=== PATIENT | male | born 1945 | race Caucasian/White ===

== ENCOUNTER → 2017-12-27 | Outpatient (CLI) | payer MEDICARE | END | disposition home or self-care (01) | LOC: LABWHC1 14:05 | PROVIDERS: ATTEND Internal Medicine | DX: R19.7 Diarrhea, unspecified (principal) | CPT/HCPCS: 87045; 87046; 87324; 89055 ==

== ENCOUNTER → 2018-02-13 | Outpatient (CLI) | payer MEDICARE ==
[2018-02-13 18:19] LABS: HCT 42.4 % (39.0-53.0); HGB 14.5 gm/dL (13.0-17.5); MCH 32.2 pg (25.0-35.0); MCHC 34.2 g/dL (31.0-37.0); MCV 94.3 fL (80.0-100.0); Mean Platelet Volume 7.6; Platelet Count 265 k/uL (150-450); RDW 12.4 % (11.5-15.5); WBC 5.9 k/uL (3.8-10.6)
[2018-02-13 18:22] LABS: ALT 32 U/L (21-72); AST 34 U/L (17-59); Albumin 4.3 g/dL (3.5-5.0); Alkaline Phosphatase 70 U/L (38-126); Anion Gap 12 mmol/L; Blood Urea Nitrogen 18 mg/dL (9-20); C Reactive Protein <5.0 mg/L (<10.0); Calcium 9.9 mg/dL (8.4-10.2); Carbon Dioxide 28 mmol/L (22-30); Chloride 102 mmol/L (98-107); Glucose 79 mg/dL (74-99); Potassium 4.9 mmol/L (3.5-5.1); Sodium 142 mmol/L (137-145); Total Bilirubin 0.4 mg/dL (0.2-1.3); Total Protein 6.8 g/dL (6.3-8.2)
[2018-02-13 20:01] LABS: Erythrocyte Sedimentation Rate 2 mm/hr (0-15)
[2018-02-14 01:09] LABS: Gliadin AB IgA, Unit <0.2 U/mL
== END | disposition home or self-care (01) ==
LOC: LABWHC1 17:10
PROVIDERS: ATTEND Internal Medicine Gastroenterology
DX: K52.9 Noninfective gastroenteritis and colitis, unspecified (principal); F32.9 Major depressive disorder, single episode, unspecified
CPT/HCPCS: 36415; 80053; 83516; 85027; 85652; 86140

== ENCOUNTER → 2018-03-16 | Outpatient (CLI) | payer MEDICARE ==
[2018-03-16 17:33] LABS: HCT 42.4 % (39.0-53.0); HGB 14.4 gm/dL (13.0-17.5); MCH 32.4 pg (25.0-35.0); MCV 95.3 fL (80.0-100.0); Mean Platelet Volume 7.1; Platelet Count 233 k/uL (150-450); RBC 4.45 m/uL (4.30-5.90)
[2018-03-16 17:39] LABS: ALT 45 U/L (21-72); AST 39 U/L (17-59); Albumin 4.3 g/dL (3.5-5.0); Alkaline Phosphatase 74 U/L (38-126); Anion Gap 11 mmol/L; Blood Urea Nitrogen 23 mg/dL (9-20); Calcium 9.8 mg/dL (8.4-10.2); Carbon Dioxide 25 mmol/L (22-30); Chloride 104 mmol/L (98-107); Glucose 82 mg/dL (74-99); Potassium 4.4 mmol/L (3.5-5.1); Sodium 140 mmol/L (137-145); Total Bilirubin 0.4 mg/dL (0.2-1.3); Total Protein 6.8 g/dL (6.3-8.2)
[2018-03-16 17:54] LABS: C Reactive Protein <5.0 mg/L (<10.0)
== END | disposition home or self-care (01) ==
LOC: LABWHC1 16:58
PROVIDERS: ATTEND Internal Medicine Gastroenterology
DX: F32.9 Major depressive disorder, single episode, unspecified (principal)
CPT/HCPCS: 36415; 80053; 85027; 86140

== ENCOUNTER → 2019-11-08 | Outpatient (CLI) | payer MEDICARE ==
--- NOTE | 2019-11-09 08:03 | US ---
EXAMINATION TYPE: US venous doppler duplex LE RT DATE OF EXAM: 11/08/2019 4:22 PM COMPARISON: NONE CLINICAL HISTORY: Right leg DVT M79.661. Pain and edema. SIDE PERFORMED: Right TECHNIQUE: The lower extremity deep venous system is examined utilizing real time linear array sonog tatyana with graded compression, doppler sonography and color-flow sonography. VESSELS IMAGED: External Iliac Vein (EIV) Common Femoral Vein Deep Femoral Vein Greater Saphenous Vein * Femoral Vein Popliteal Vein Small Saphenous Vein * Proximal Calf Veins (* superficial vessels) Grayscale, color doppler, spectral doppler imaging performed of the deep veins of the right lower ext remity. There is normal flow, compressibility, vascular waveforms. Right Leg: Negative for DVT IMPRESSION: No sonographic evidence of deep venous thrombosis within the right lower extremity.
== END | disposition home or self-care (01) ==
LOC: RADUSWWP 15:52
PROVIDERS: ATTEND Internal Medicine
DX: M79.661 Pain in right lower leg (principal)

== ENCOUNTER → 2020-08-04 | Outpatient (CLI) | payer MEDICARE ==
--- NOTE | 2020-08-04 10:41 | P.STRESS ---
- Stress Test Note Stress Test Results/Findings: Exam Performed: stress echo exercise Exam Date: 08/04/20 Reason for Exam: CHEST PAIN Height: 5 ft 9 in Weight: 144 kg Protocol: MADONNA Stage: 3 Duration of Exercise: 7:30 Resting Heart Rate: 73 Resting Blood Pressure: 134/64 Maximum Achieved Heart Rate: 130 Maximum Achieved Blood Pressure: 183/75 85% PMHR: 125 100% PMHR: 147 METS: 9.1 Technologist Comment: Stress Test Results/Findings: This is a 74-year-old gentleman with history of hypertension being evaluated for symptoms of chest pain. Stress data: Baseline EKG showed ectopic atrial rhythm with a normal TN and QRS duration. Blood pressure at rest is 134/64, pulse rate of 73. Patient walked on the Madonna protocol for 7 minutes and 30 seconds achieving a maximum heart rate of 1:30 which is 88% of breath. Heart rate. Patient's blood pressure at peak exercise was 183/75. EKGs taken during and after exercise showed about a 5 mm J-point depression with upsloping ST segments in inferolateral leads. Patient did not express any chest pain. Occasional PVCs were noted. Echo data: Baseline echo images showed normal wall motion and thickening. Exercise echo images showed augmentation of wall motion and thickening in all segments. Final impression: #1. Borderline ST-T changes which are not diagnostic for ischemia #2. Negative stress echo. #3. Patient did not experience any chest pain. #4. Occasional PVCs are noted during exercise.
--- NOTE | 2020-08-04 12:18 | ECHOS ---
Stress Test Results/Findings: Exam Performed: stress echo exercise Exam Date: 08/04/20 Reason for Exam: CHEST PAIN Height: 5 ft 9 in Weight: 144 kg Protocol: MADONNA Stage: 3 Duration of Exercise: 7:30 Resting Heart Rate: 73 Resting Blood Pressure: 134/64 Maximum Achieved Heart Rate: 130 Maximum Achieved Blood Pressure: 183/75 85% PMHR: 125 100% PMHR: 147 METS: 9.1 Technologist Comment: Stress Test Results/Findings: This is a 74-year-old gentleman with history of hypertension being evaluated for symptoms of chest pain. Stress data: Baseline EKG showed ectopic atrial rhythm with a normal GA and QRS duration. Blood pressure at rest is 134/64, pulse rate of 73. Patient walked on the Madonna protocol for 7 minutes and 30 seconds achieving a maximum heart rate of 1:30 which is 88% of breath. Heart rate. Patient's blood pressure at peak exercise was 183/75. EKGs taken during and after exercise showed about a 5 mm J-point depression with upsloping ST segments in inferolateral leads. Patient did not express any chest pain. Occasional PVCs were noted. Echo data: Baseline echo images showed normal wall motion and thickening. Exercise echo images showed augmentation of wall motion and thickening in all segments. Final impression: #1. Borderline ST-T changes which are not diagnostic for ischemia #2. Negative stress echo. #3. Patient did not experience any chest pain. #4. Occasional PVCs are noted during exercise. MTDD
== END | disposition home or self-care (01) ==
LOC: RADNMMAIN 09:01
PROVIDERS: ATTEND Internal Medicine
DX: R94.39 Abnormal result of other cardiovascular function study (principal)
CPT/HCPCS: 93351

== ENCOUNTER 2022-08-02 22:20 | Emergency (ER) | payer MEDICARE ==
[2022-08-02 23:07] VITALS: BP 166/77; PULSE 73; RESP 16; TEMP 97.9
--- NOTE | 2022-08-02 23:50 | XR ---
EXAMINATION TYPE: XR forearm LT DATE OF EXAM: 08/02/2022 COMPARISON: NONE HISTORY: Fall. Pain TECHNIQUE: 2 views FINDINGS: Radius and ulna appear intact. I see no fracture nor dislocation. Elbow joint is intact. Th e wrist joint appears intact. IMPRESSION: No fracture seen.
[2022-08-03] MEDS ORDERED: BACITRACIN OINT 1 EACH PACKET TOPICAL ONE ×2 (00:04→00:10)
[2022-08-03] MEDS ORDERED: DIPH,PERTUS(ACELL)TETVAC-LF 0.5 ML VIAL IM ONE (00:12)
--- NOTE | 2022-08-03 00:17 | ED ---
Fall HPI - General Chief Complaint: Fall Stated Complaint: Arm laceration, Fall Time Seen by Provider: 08/02/22 23:48 Source: patient, RN notes reviewed, old records reviewed Mode of arrival: ambulatory - History of Present Illness Initial Comments: 76-year-old well appearing male presents ambulatory with complaints of left forearm pain with skin tears after missing the second to last step in the basement. States tripped forward and hitting his forearm on the cabinet. He didn't sustain some skin tears. States did not hit his head or lose consciousness. Denies any other injuries. Unsure if his tetanus shot is up-to-date. MD Complaint: fall -: hour(s) (earlier this morning) Fall From: down stairs (#) (2) Fall Witnessed: no Place Fall Occurred: home Loss of Consciousness: none Prolonged Down Time?: no Symptoms Prior to Fall: none Location - Extremities: Left: Forearm - Related Data Home Medications Medication Instructions Recorded Confirmed Benazepril [Lotensin] 10 mg PO DAILY 08/12/14 08/27/14 Allergies Allergy/AdvReac Type Severity Reaction Status Date / Time pentazocine lactate AdvReac Hallucinati Verified 08/02/22 23:04 [From [place]] ons tramadol AdvReac Hallucinati Verified 08/02/22 23:04 ons Review of Systems ROS Statement: Those systems with pertinent positive or pertinent negative responses have been documented in the HPI. ROS Other: All systems not noted in ROS Statement are negative. Past Medical History Past Medical History: Hypertension, Osteoarthritis (OA) History of Any Multi-Drug Resistant Organisms: None Reported Past Surgical History: Orthopedic Surgery Additional Past Surgical History / Comment(s): LEFT KNEE, TRIGGER FINGER RELEASE , CARPAL TUNNEL RELEASE, LEFT SHOULDER, RIGHT SHOULDER SURGERY, RIGHT HAND SURGERY, cataract surg 08-13-14 Past Anesthesia/Blood Transfusion Reactions: No Reported Reaction Past Psychological History: No Psychological Hx Reported Smoking Status: Never smoker Past Alcohol Use History: None Reported Past Drug Use History: None Reported - Past Family History Brother(s) Family Medical History: Cancer Father Family Medical History: Cancer General Exam Limitations: no limitations General appearance: alert, in no apparent distress Head exam: Present: atraumatic Eye exam: Absent: scleral icterus, conjunctival injection, periorbital swelling Neck exam: Present: full ROM. Absent: tenderness, meningismus Respiratory exam: Absent: respiratory distress, accessory muscle use Cardiovascular Exam: Present: regular rate GI/Abdominal exam: Present: soft Left Elbow exam: Present: abrasion (skin tear 4mm). Absent: tenderness, swelling Forearm Wrist exam: Present: full ROM, tenderness, swelling, abrasion (skin tears multiple), ecchymosis Hand Wrist exam: Present: full ROM. Absent: tenderness, swelling Neuro motor exam: Present: wrist extension intact, thumb opposition intact, thumb IP flexion intact, thumb adduction intact, fingers 2-5 abduction intact Neurosensory exam: Present: radial nerve intact, ulnar nerve intact, median nerve intact Vascular: Present: normal capillary refill, radial pulse. Absent: vascular compromise Neurological exam: Present: alert, oriented X3, normal gait Psychiatric exam: Present: normal affect, normal mood Skin exam: Present: warm, dry, normal color. Absent: cyanosis, diaphoretic Course Vital Signs 08/02/22 23:04 Temperature 97.9 F Pulse Rate 73 Respiratory 16 Rate Blood Pressure 166/77 O2 Sat by Pulse 98 Oximetry Medical Decision Making - Medical Decision Making Patient missed the last two steps in the basement this morning falling forward hitting arm on cabinet. Denies any symptoms prior to tripping. No dizziness or headaches. Vital signs are stable. X-ray forearm negative for any fracture. Skin tears were debrided, cleansed and dressed with Bacitracin and nonadhering dressing. Tetanus shot was updated. Patient was directed to change the dressings once a day and watch for signs of infection. Return to the emergency room with any new or concerning symptoms. Follow-up with primary care doctor. Patient is agreeable to this plan of care. Case discussed with Dr. Cha. Disposition Clinical Impression: Fall, Left arm pain, Skin tear, Contusion Disposition: HOME SELF-CARE Condition: Good Instructions (If sedation given, give patient instructions): Fall Prevention for Older Adults (ED), Acute Wound Care (ED) Additional Instructions: Use ice for pain and swelling. Change dressings once a day and use Neosporin dressings. Return to the emergency room with any new or concerning symptoms or signs of infection. Follow-up with the primary care doctor next week. Is patient prescribed a controlled substance at d/c from ED?: No Referrals: Jairo Sequeira MD [Primary Care Provider] - 1-2 days Time of Disposition: 00:17
== END 2022-08-03 00:51 | disposition home or self-care (01) ==
LOC: EC 22:20
DX: T14.8XXA Other injury of unspecified body region, initial encounter (principal); M79.602 Pain in left arm
CPT/HCPCS: 90715; 99284

== ENCOUNTER → 2023-08-16 | Outpatient (CLI) | payer MEDICARE | END | disposition home or self-care (01) | LOC: LABPAT 08:56 | PROVIDERS: ATTEND Surgery | DX: Z01.818 Encounter for other preprocedural examination (principal); R94.31 Abnormal electrocardiogram [ECG] [EKG] | CPT/HCPCS: 93005 ==

== ENCOUNTER → 2023-08-19 | Day surgery (SDC) | payer MEDICARE ==
[2023-08-15 14:30] VITALS: BMI 22.1
[~2023-08-19] MED LIST: ACETAMINOPHEN TAB 325 MG TAB PO SCH; ACETAMINOPHEN TAB 500 MG TAB PO PRN; BUPIVACAINE (PF) 0.5% 30 ML VIAL SQ ONE; DEXAMETHASONE SOD PHOSPHATE 4 MG/ML 1 ML VIAL IV ONE; HEPARIN SODIUM,PORCINE/PF 5,000 UNIT/0.5 ML SYRINGE SQ PRN; HYDROmorphone 0.5 MG/0.5 ML SYRINGE IVP PRN; IBUPROFEN 600 MG TAB PO SCH; LACTATED RINGERS 1,000 ML IV ONE; LACTATED RINGERS 1,000 ML IV SCH; MIDAZOLAM 2 MG/2 ML VIAL IV PRN; ONDANSETRON 4 MG/2 ML VIAL IVP ONE; TAMSULOSIN 0.4 MG CAP.ER.24H PO ONE
[2023-08-19 12:28] LABS: Glucose,Whole Blood 87 mg/dL (70-110)
--- NOTE | 2023-08-19 15:03 | P.OP ---
Date of Procedure: 08/19/23 Procedure(s) Performed: PREOPERATIVE DIAGNOSIS: Incarcerated ventral hernia POSTOPERATIVE DIAGNOSIS: Same PROCEDURE: Open repair incarcerated ventral hernia with mesh SURGEON: Dr. Pendleton ANESTHESIA: General OPERATIVE PROCEDURE DETAILS: Patient placed on the operating table in the supine position. Abdomen was prepped and draped in usual sterile fashion. A vertical incision was then made superior to the umbilicus by approximately 6 cm. Dissection through the subcutaneous tissues took place using electrocautery. The patient had a single main defect measuring 1.5 x 1 cm. The hernia was reduced back into the preperitoneal space. The pre-peroneal space was then carefully dissected circumferentially. The patient had a small 2 mm defect superior to the main defect by about 7 mm. The 4.3 cm ventral ex mesh was placed in the preperitoneal space and sutured to the fascia using trans-fascial 0 Ethibond sutures. Following that the midline fascia was reapproximated using interrupted 0 Ethibond mattress sutures. The smaller defect was closed using a single 0 Ethibond suture. The subcutaneous tissues were closed using 3-0 Vicryl sutures. The skin was closed using a running 4-0 Monocryl suture. Skin glue was then HERNIA CHARACTERISTICS: Length: 1.5 cm Width: 1 cm Type: Incarcerated ventral TYPE OF MESH USED: 4.3 cm ventral ex LOCATION OF MESH: Sub-lay FIXATION: 0 Ethibond PREOPERATIVE DISCUSSION ON SMOKING CESSASTION: Yes PREOPERATIVE DISCUSSION ON MORBID OBESITY: Yes PREOPERATIVE DISCUSSION ON APPROPRIATE USE OF NARCOTIC USE: Yes PREOPERATIVE EDUCATION: Multi Modal, Smoking Cessation and Weight Loss with BMI over 35. DISPOSITION: Stable to recovery room
[2023-08-19 15:15] VITALS: TEMP 97.5
[2023-08-19 16:01] VITALS: RESP 16
[2023-08-19 16:23] VITALS: BP 123/63; PULSE 71
== END ==
LOC: OR 11:07
PROVIDERS: ATTEND Surgery
DX: K43.9 Ventral hernia without obstruction or gangrene (principal); K43.6 Other and unspecified ventral hernia with obstruction, without gangrene; F41.9 Anxiety disorder, unspecified; E78.5 Hyperlipidemia, unspecified; I10 Essential (primary) hypertension; K21.9 Gastro-esophageal reflux disease without esophagitis; Z98.890 Other specified postprocedural states; Z88.5 Allergy status to narcotic agent; Z79.899 Other long term (current) drug therapy
CPT/HCPCS: 49592; C1781; J1100; J0690; J2405; J1644; J0665

== ENCOUNTER → 2023-09-28 | Outpatient (CLI) | payer MEDICARE ==
[2023-09-28 08:00] LABS: Partial Thromboplastin Time 24.1 sec (22.0-30.0); Prothrombin Time 10.7 sec (10.0-12.5)
[2023-09-28 11:22] LABS: Basophils # (A) 0.07 X 10*3/uL (0.00-0.10); Eosinophils # (A) 0.09 X 10*3/uL (0.04-0.35); Eosinophils % (A) 1.3 %; HGB 14.2 g/dL (13.0-17.0); Lymphocytes # (A) 2.09 X 10*3/uL (0.90-5.00); Lymphocytes % (A) 30.1 %; MCH 31.6 pg (27.0-32.0); MCHC 33.8 g/dL (32.0-37.0); MCV 93.5 FL (80.0-97.0); Mean Platelet Volume 10.5 FL (9.5-12.2); Monocytes # (A) 0.65 X 10*3/uL (0.20-1.00); Monocytes % (A) 9.4 %; NRBC Per 100 WBC 0 X 10*3/uL (0.00-0.01); Neutrophils # (A) 4.02 X 10*3/uL (1.80-7.70); Neutrophils % (A) 57.9 %; Platelet Count 259 X 10*3/uL (140-440); RBC 4.49 X 10*6/uL (4.40-5.60); RDW 11.9 % (11.5-14.5); WBC 6.94 X 10*3/uL (4.50-10.00)
[2023-09-28 11:31] LABS: ALT 29 U/L (10-49); AST 24 U/L (14-35); Albumin 4.4 g/dL (3.8-4.9); Albumin/Globulin Ratio 1.91 Ratio (1.60-3.17); Alkaline Phosphatase 72 U/L (41-126); Blood Urea Nitrogen 27.2 mg/dL (9.0-27.0); Calcium 9.9 mg/dL (8.7-10.3); Carbon Dioxide 25.4 mmol/L (21.6-31.8); Chloride 103 mmol/L (96-109); Globulin 2.3 g/dL (1.6-3.3); Glucose 99 mg/dL (70-110); Potassium 4.6 mmol/L (3.5-5.5); Prealbumin 22.1 mg/dL (18.0-42.0); Sodium 138 mmol/L (135-145); Total Bilirubin 0.4 mg/dL (0.3-1.2); Total Protein 6.7 g/dL (6.2-8.2)
[2023-09-28 11:45] LABS: Appearance,Urine Clear (Clear); Bilirubin,Urine Negative (Negative); Blood,Urine Negative (Negative); Color,Urine Yellow (Yellow); Ketones,Urine Trace (Negative); Nitrite,Urine Negative (Negative); Specific Gravity,Urine 1.023 (1.001-1.030)
[2023-09-28 11:51] LABS: Bacteria,Urine None Seen (None Seen)
== END | disposition home or self-care (01) ==
LOC: LABWHC1 06:54
PROVIDERS: ATTEND Neurological Surgery
DX: Z01.812 Encounter for preprocedural laboratory examination (principal)
CPT/HCPCS: 36415; 80053; 81001; 83036; 84134; 85025; 85610; 85730; 87070

== ENCOUNTER → 2024-07-24 | Outpatient (CLI) | payer MEDICARE ==
--- NOTE | 2024-07-24 10:24 | XR ---
EXAMINATION TYPE: XR hand complete RT DATE OF EXAM: 07/24/2024 10:15 AM CLINICAL INDICATION: Male, 78 years old with history of L03.90 Cellulitis; [facility] COMPARISON: None TECHNIQUE: XR hand complete RT Frontal, lateral and oblique views were obtained. FINDINGS: Somewhat diffuse soft tissue swelling. Mild multilevel/multifocal degeneration changes thro ughout the joints of the hand. IMPRESSION: 1. Soft tissue swelling without evidence for fracture or osseous erosion 2. Multifocal osteoarthrosis throughout the joints of the hand. [facility], , 07/24/2024 10:22 AM
== END | disposition home or self-care (01) ==
LOC: RADXRMAIN 09:43
PROVIDERS: ATTEND Internal Medicine

== ENCOUNTER → 2024-09-21 | Outpatient (CLI) | payer MEDICARE ==
--- NOTE | 2024-09-21 13:37 | XR ---
EXAMINATION TYPE: XR hand complete RT DATE OF EXAM: 09/21/2024 12:17 PM COMPARISON: 07/24/2024 CLINICAL INDICATION: Male, 78 years old with history of M79.641 PAIN IN RIGHT HAND, TECHNIQUE: 3 view(s) obtained. FINDINGS: No acute fracture or dislocation. No subacute or old fracture identified. Mild proximal distal interp halangeal joint space narrowing is evident. Chronic changes appear to be at the carpometacarpal junction of the first digit Follow up exams can be performed 7-10 days from acute trauma and pain IMPRESSION: 1. No acute or subacute osseous abnormality to suggest recent trauma. Follow-up can be performed as clinically indicated [facility], , 09/21/2024 1:35 PM
== END | disposition home or self-care (01) ==
LOC: RADXRMAIN 11:52
PROVIDERS: ATTEND Internal Medicine
DX: M79.641 Pain in right hand (principal)